=== PATIENT | female | born 2005 | race Two or more races ===

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

== ENCOUNTER 2023-02-11 13:44 | Emergency (ER) | payer OTHER ==
[~2023-02-11] VITALS: Ht 160 cm; Wt 47.6 kg
[~2023-02-11 13:44] MED LIST changes: +AMOX-430 PO; +IBUP-1953 PO
--- NOTE | 2023-02-11 14:45 | NUR ---
RECEIVED PT WALKING in from home c/o HEADACHE FROM ONE MONTH AWAKE AND ALERT NO WEEKNESS DINESS DIFFECITY LOOKS COMFRTABLE NO N/V AT THIS TIME
--- NOTE | 2023-02-11 15:00 | NUR ---
Seen By DR. DAVALOS
[2023-02-11] MEDS ORDERED: SUMATRIPTAN SUCCINATE 6 MG/0.5 ML VIAL SQ ONE ×2 (15:30→15:55)
[2023-02-11] MEDS ORDERED: MECLIZINE HCL 12.5 MG TABLET PO ONE (15:30)
[2023-02-11] MEDS ORDERED: MECLIZINE HCL 25 MG TABLET ONE (15:57)
[2023-02-11] MEDS ORDERED: ALPRAZOLAM 0.5 MG TABLET PO ONE (16:30)
--- NOTE | 2023-02-11 16:30 | NUR ---
PT ANXOUSE . REFUSED XANEX OKY BY DR. DAVALOS
[2023-02-11] MEDS ORDERED: ALPRAZOLAM 0.5 MG TABLET ONE (16:41)
[2023-02-11] MEDS ORDERED: MAGN400T8 PO (16:51)
[2023-02-11] MEDS ORDERED: BUTA1CAP46 PO (16:51)
--- NOTE | 2023-02-11 17:00 | NUR ---
Patient discharged to home in stable condition. Written and verbal after care instructions given. Patient verbalizes understanding of instruction.
[2023-02-11 17:21] VITALS: BP 124/75
== END 2023-02-11 17:05 | disposition home or self-care (01) ==
LOC: ER 14:20
DX: G43.909 Migraine, unspecified, not intractable, without status migrainosus (principal); F32.A Depression, unspecified; Z79.899 Other long term (current) drug therapy; Z60.2 Problems related to living alone
CPT/HCPCS: 99283; 96372; 84703; J8597; J3030